=== PATIENT | female | born 1995 | race Caucasian/White ===

== ENCOUNTER 2018-08-20 13:36 | Emergency (ER) | payer OTHER ==
[~2018-08-20] VITALS: Ht 154.9 cm; Wt 84.1 kg
[2018-08-20 13:50] VITALS: Ht 154.9 cm; Wt 84.1 kg
[2018-08-20] MEDS ORDERED: CLARITIN 10 MG10 MG PO (13:51)
[2018-08-20] MEDS ORDERED: VOLTAREN75 MG PO (15:27)
[2018-08-20] MEDS ORDERED: ROBAXIN500 MG PO (15:27)
[2018-08-20 15:53] VITALS: BP 126/72
== END 2018-08-20 15:54 | disposition home or self-care (01) ==
LOC: D.ER 13:36
DX: S16.1XXA Strain of muscle, fascia and tendon at neck level, initial encounter (principal); V43.52XA Car driver injured in collision with other type car in traffic accident, initial encounter; Y93.89 Activity, other specified; Y92.410 Unspecified street and highway as the place of occurrence of the external cause

== ENCOUNTER 2019-01-14 20:19 | Inpatient (IN) | payer MEDICAID ==
[~2019-01-14] VITALS: Ht 154.9 cm; Wt 90.5 kg
[~2019-01-14 20:19] MED LIST: CLARITIN 10 MG10 MG PO; ROBAXIN500 MG PO; VOLTAREN75 MG PO
[2019-01-14] MEDS ORDERED: ZOVIRAX400 MG PO (20:35)
[2019-01-14] MEDS ORDERED: ZITHROMAX250 MG PO (20:35)
[2019-01-14] MEDS ORDERED: SINGULAIR10 MG PO (20:35)
[2019-01-14] MEDS ORDERED: ALBUTEROL SULF8.5 GM INH (20:35)
[2019-01-14] MEDS ORDERED: CLARITIN 10 MG10 MG PO (20:35)
--- NOTE | 2019-01-14 22:45 | NUR ---
RT AT BEDSIDE.
--- NOTE | 2019-01-14 22:57 | NUR ---
PT SECOND RECEIVED UPDRAFT BY RT. PT O2 SAT 89% ON RA. STEPHANI PALACIOS NOTIFIED.
[2019-01-14 23:02] LABS: HEMATOCRIT 39.6 % (36.0-48.0); HEMOGLOBIN 13.5 g/dL (12-16); LYMPHOCYTES 13.7 % (15-50); MCH 30.5 pg (26.0-34.0); MCHC 34.1 g/dL (31.0-37.0); MCV 89.4 fL (80.0-100.0); MEAN PLATELET VOLUME 12.2 fL (7.4-10.4); NEUTROPHILS 78.9 % (40-80); PLATELET COUNT 232 10x3/uL (130-400); RBC 4.43 10x6/uL (4.00-5.40); RDW 12.7 % (11.5-14.5)
--- NOTE | 2019-01-14 23:03 | NUR ---
FLU SWAB OBTAINED AND SENT TO LAB
[2019-01-14 23:07] LABS: CALC OSMOLALITY 282 mosm/kg (275-300); CALCIUM 8.8 mg/dL (8.5-10.1); CARBON DIOXIDE 29.8 mmol/L (21.0-32.0); CHLORIDE - SERUM 104 mmol/L (98-107); CREATININE - SERUM 0.7 mg/dL (0.6-1.3); GLUCOSE 108 mg/dL (74-106); POTASSIUM - SERUM 3.2 mmol/L (3.5-5.1); SODIUM 143 mmol/L (136-145); UREA NITROGEN 5 mg/dL (7-18); eGFR NON AFRICAN AMERICAN > 90 mL/min (90-120)
[2019-01-14 23:13] LABS: ALBUMIN 3.9 g/dL (3.4-5.0); ALKALINE PHOSPHATASE 98 U/L (46-116); ALT (SGPT) 21 U/L (10-68); BILIRUBIN - TOTAL 0.22 mg/dL (0.2-1.3); PROTEIN - SERUM 8.1 g/dL (6.4-8.2)
[2019-01-15] VITALS (7 sets, daily range): BP systolic 112–137; BP diastolic 71–81; Ht 154.9 cm; Wt 90.5 kg
--- NOTE | 2019-01-15 00:45 | NUR ---
RECEIVED VIA WHEELCHAIR FROM ER, A&O X4, MEDS AND HISTORY COMPLETE, [id number], PLACED ON 2L-NS, DENIES ANY NEEDS, BED IS LOW, SRX2, CALL LIGHT IN REACH, FAMILY AT BEDSIDE, WILL CONTINUE PLAN OF CARE
--- NOTE | 2019-01-15 07:00 | NUR ---
RECEIVED REPORT. ASSUMED CARE OF PATIENT. CALL LIGHT WITHIN REACH. PATIENT SITTING UP IN BED, RESP EVEN AND UNLABORED. QUESTIONED PATIENT ABOUT HER ASTHMA AND HOW WELL IT IS CONTROLLED. PATIENT STATES THAT SHE USES HER ALBUTEROL SEVERAL TIMES PER DAY, ALMOST EVERY DAY. SHE AWAKENS MULTIPLE TIMES AT TIME TO USE HER INHALER. PATIENT IS ON NO OTHER INHALERS SUCH LABA. INSPIRATORY AND EXPIRATORY WHEEZES THROUGHOUT THE ANTERIOR AND POSTERIOR LUNG ÁLVAREZ. DENIES NEEDS AT THIS TIME EXCEPT FOR SOMETHING OTHER THAN COUGH DROPS TO HELP HER COUGH. COUGH IS DRY.
--- NOTE | 2019-01-15 09:26 | NUR ---
WAITING ON PHARMACY TO BRING ANA VASQUEZ TO THE UNIT. PATIENT TOOK HER PRESCRIPTION OF ACYCLOVIR 800MG PO 5X DAILY AND SHE TOOK HER ZITHROMAX TAB AND HAS ONE TAB REMAINING FOR IN THE AM AND ABT WILL BE COMPLETE.
[2019-01-15 11:03] LABS: APPEARANCE CLEAR (CLEAR); BILIRUBIN NEGATIVE (NEGATIVE); COLOR YELLOW (YELLOW); GLUCOSE 250 mg/dL (NEGATIVE); KETONE NEGATIVE (NEGATIVE); NITRITE NEGATIVE (NEGATIVE); PROTEIN NEGATIVE (NEGATIVE); SPECIFIC GRAVITY 1.005 (1.005-1.020); UROBILINOGEN NORMAL (NORMAL)
[2019-01-15 11:04] LABS: BACTERIA MANY /hpf (NEGATIVE); EPITHELIAL CELLS 0-5 /hpf (0-5); MUCUS >1+ /lpf (NONE SEEN)
--- NOTE | 2019-01-15 11:50 | NUR ---
DR. ORTIZ HERE FOR ROUNDS. NO DISTRESS. ASTHMA DISCUSSED WITH PATIENT. CALL LIGHT WITHIN REACH.
--- NOTE | 2019-01-15 14:17 | NUR ---
RESTING IN BED. NO DISTRESS. CALL LIGHT WITHIN REACH.
--- NOTE | 2019-01-15 15:22 | NUR ---
PATIENT UP ADLIB, REFUSES SCDs.
--- NOTE | 2019-01-15 17:06 | NUR ---
MEDICATED FOR COUGH AT THIS TIME. PATIENT COMPLAINS THE MUCOUS IS THICK AND SHE CAN'T GET IT OUT AND THE COUGH IN NONSTOP. HOPEFULLY THIS WILL HELP.
[2019-01-16 04:00] VITALS: BP 115/68
[2019-01-16 06:13] LABS: BASOPHILS 0 % (0-2); EOSINOPHILS 0 % (0-7); HEMATOCRIT 39.8 % (36.0-48.0); HEMOGLOBIN 13.1 g/dL (12-16); IMMATURE GRANULOCYTES 0.4 % (0-5); LYMPHOCYTES 5.6 % (15-50); MCH 30.3 pg (26.0-34.0); MCHC 32.9 g/dL (31.0-37.0); MEAN PLATELET VOLUME 11.8 fL (7.4-10.4); MONOCYTES 3.4 % (2-11); NEUTROPHILS 90.6 % (40-80); PLATELET COUNT 270 10x3/uL (130-400); RBC 4.33 10x6/uL (4.00-5.40); RDW 13.2 % (11.5-14.5)
[2019-01-16 06:24] LABS: MCV 91.9 fL (80.0-100.0); WBC 13.4 10x3/uL (4.8-10.8)
[2019-01-16 06:26] LABS: CALCIUM 9.2 mg/dL (8.5-10.1); CARBON DIOXIDE 27.7 mmol/L (21.0-32.0); CHLORIDE - SERUM 106 mmol/L (98-107); CREATININE - SERUM 0.6 mg/dL (0.6-1.3); GLUCOSE 149 mg/dL (74-106); SODIUM 142 mmol/L (136-145); eGFR NON AFRICAN AMERICAN > 90 mL/min (90-120)
[2019-01-16 06:27] LABS: CALC OSMOLALITY 284 mosm/kg (275-300); UREA NITROGEN 9 mg/dL (7-18)
--- NOTE | 2019-01-16 07:20 | NUR ---
PT RESTING IN BED, MICHAEL NEEDS. WCTM.
[2019-01-16 09:00] VITALS: BP 131/70
[2019-01-16 11:46] VITALS: BP 131/83
[2019-01-16 16:16] VITALS: BP 122/78
--- NOTE | 2019-01-16 19:45 | NUR ---
REPORT RECIEVED AND ROUNDING COMPLETE. PATIENT SITTING UP IN BED IN HIGH FOWLERS POSITION. PATIENT DISAPOINTED THAT SHE COULDNT GO HOME TODAY BUT UNDERSTANDS. PATIENT HAS A RIGHT AC PIV THAT IS SALINR LOCKED, NO S/SX OF INFILTRATION OR INFECTION AT THIS TIME. PATIENT COMPLAIND OF DRY NOSE FROM O2 WHICH SHE IS RECIEVING VIA NASAL CANNULA. REPORT THIS TO RT. PATIENT STATES SHE HAS NO OTHER NEEDS AT THIS TIME. CALL LIGHT WITHIN REACH AND BED IN LOWEST LOCKED POSITION. PATIENT SHOWING NO S/SX OF DISTRESS AT THIS TIME.
[2019-01-16 20:00] VITALS: BP 133/84
[2019-01-17 00:30] VITALS: BP 116/76
--- NOTE | 2019-01-17 01:40 | NUR ---
I have reviewed this patient and I concur with the Shift Assessment completed by the Licensed Practical Nurse today this shift.
[2019-01-17 04:00] VITALS: BP 115/74
[2019-01-17 05:09] LABS: BASOPHILS 0 % (0-2); EOSINOPHILS 0 % (0-7); HEMATOCRIT 39.7 % (36.0-48.0); HEMOGLOBIN 12.8 g/dL (12-16); IMMATURE GRANULOCYTES 0.9 % (0-5); LYMPHOCYTES 7.6 % (15-50); MCH 30.4 pg (26.0-34.0); MCHC 32.2 g/dL (31.0-37.0); MEAN PLATELET VOLUME 11.9 fL (7.4-10.4); MONOCYTES 2.3 % (2-11); NEUTROPHILS 89.2 % (40-80); PLATELET COUNT 285 10x3/uL (130-400); RBC 4.21 10x6/uL (4.00-5.40); RDW 13.3 % (11.5-14.5); WBC 12.5 10x3/uL (4.8-10.8)
[2019-01-17 05:22] LABS: CALCIUM 8.6 mg/dL (8.5-10.1); CARBON DIOXIDE 27.7 mmol/L (21.0-32.0); CHLORIDE - SERUM 106 mmol/L (98-107); GLUCOSE 131 mg/dL (74-106); POTASSIUM - SERUM 4.4 mmol/L (3.5-5.1); SODIUM 143 mmol/L (136-145)
[2019-01-17 05:23] LABS: CALC OSMOLALITY 287 mosm/kg (275-300); CREATININE - SERUM 0.8 mg/dL (0.6-1.3); UREA NITROGEN 14 mg/dL (7-18); eGFR NON AFRICAN AMERICAN > 90 mL/min (90-120)
[2019-01-17 05:51] LABS: MCV 94.3 fL (80.0-100.0)
--- NOTE | 2019-01-17 07:00 | NUR ---
RECEIVED REPORT. ASSUMED CARE OF PATIENT. CALL LIGHT WITHIN REACH. PATIENT SITTING UP ON BED, ALERT ORIENTED RECIEVING A NEBULIZER TREATMENT. PATIENT STATES SHE FEELS MUCH BETTER AND HOPES THAT SHE WILL GET TO GO HOME TODAY. DENIES NEEDS. NO DISTRESS.
--- NOTE | 2019-01-17 08:01 | NUR ---
CALLED PHARMACY AND SPOKE TO ROB TO NOTIFY THAT WE HAVE NO ACYCLOVIR TO ADMINISTER TO THE PATIENT, BOTH PYSIX MACHINES ARE EMPTY. MEDICATION SHOULD BE TO THE FLOOR SOON.
[2019-01-17 08:51] VITALS: BP 125/71
[2019-01-17 12:02] VITALS: BP 124/81
--- NOTE | 2019-01-17 12:33 | NUR ---
CALLED AND HE IS COMING TO SEE PATIENT IN A FEW MINUTES AND WILL PROBABLY LET HER GO HOME.
--- NOTE | 2019-01-17 13:50 | MORECARE ---
CASE MANAGEMENT DISCHARGE SUMMARY PATIENT: KAZ WILBURN UNIT: [id number] ADM DATE: 01/16/19 AGE: 23 : 95 SEX: F ROOM/BED: D.6537 AUTHOR: IAN,DOC PHYSICIAN: REFERRING PHYSICIAN: JUANY MONROE MD DATE OF SERVICE: 01/17/19 Discharge Plan Patient Name: KAZ WILBURN Facility: [facility]:[place] : 1995 Planned Disposition: Home Anticipated Discharge Date: 01/17/19 Discharge Date: Expected LOS: 1 Initial Reviewer: [email or web address] Initial Review Date: 01/15/2019 Generated: 01/17/19 2:50 pm Comments DCP- Discharge Planning Updated by [email or web address]: Jeri Landaverde on 01/17/19 12:[address] DC PLAN: Return home with . ANTICIPATED DC NEEDS: Denied dc needs. CM met with patient to complete initial dc planning assessment. CM educated patient on the CM role and verbal consent given by patient to complete assessment. CM verified patient's address, phone number, and emergency contact phone numbers. Patient lives at home with her . At discharge patient plans to return home and feels this is a safe discharge. CM discussed availability of home health, rehab services, and medical equipment. Patient denied known discharge needs at this time. She stated she has a nebulizer at home and only needs her nebulizer medication called in. Journalism Teacher notified and she will call the medication in to the pharmacy. Patient reports she will transport herself home at time of discharge. CM will continue to follow and will assist as needed with dc plans/needs. Jrei Landaverde RN, [facility] DCPIA - Discharge Planning Initial Assessment Updated by [email or web address]: Jeri Landaverde on 01/17/19 1:45 pm * Is the patient Alert and Oriented? Yes * How many steps to enter\exit or inside your home? none * PCP Dr. Radha Sims * Pharmacy [facility] * Preadmission Environment Home with Family * ADLs Independent * Equipment Nebulizer * List name and contact numbers for known caregivers / representatives who currently or will assist patient after discharge: Buzz Wilburn - spouse - [phone] * Verbal permission to speak to the caregivers and representatives has been obtained from the patient. Yes * Community resources currently utilized None * Additional services required to return to the preadmission environment? No * Can the patient safely return to the preadmission environment? Yes * Has this patient been hospitalized within the prior 30 days at any hospital? No Patient Name: KAZ WILBURN Page [phone] at 1350 All edits/amendments must be made on the electronic document DICTATION DATE: 01/17/19 1350 HEAD OF MAINTENANCE: PILLO 01/17/19 1350 RPT#: [id number] DC DATE: STATUS: ADM IN [facility] [address] [place] [address] END OF REPORT
--- NOTE | 2019-01-17 14:21 | NUR ---
20 GAUGE IV REMOVED FROM RIGHT AC. CATHETER TIP INTACT. NO BLEEDING FROM SITE. 2X2 GAUZE APPLIED AND SECURED WITH BANDAID. PATIENT TOLERATED IV REMOVAL WELL. PATIENT IS BEING DISCHARGED TO HOME.
[2019-01-17] MEDS ORDERED: SYMBICORT 16010.2 GM INH (14:26)
[2019-01-17] MEDS ORDERED: FLUTICASONE PRO16 GM NASAL (14:27)
[2019-01-17] MEDS ORDERED: MUCINEX DM ER1 EAC1 PO (14:27)
[2019-01-17] MEDS ORDERED: DOXYCYCLINE HY100 M2 PO (14:28)
[2019-01-17] MEDS ORDERED: FEXOFENADINE HC60 MG PO (14:28)
[2019-01-17] MEDS ORDERED: PREDNISONE10 MG (14:29)
--- NOTE | 2019-01-17 14:43 | NUR ---
PATIENT HAS NOT HAD A FLU SHOT THIS YEAR. DOES NOT WANT ONE AT THIS TIME.
--- NOTE | 2019-01-17 15:01 | NUR ---
DISCHARGE INSTRUCTIONS PROVIDED TO PATIENT. PATIENT VERBALIZED UNDERSTANDING OF ALL INSTRUCTIONS AND THE NEED TO GO ENERGY PROFESSIONAL THE MULTIPLE PRESCRIPTIONS CALLED OVER FOR HER. PATIENT LEFT AMBULATORY AT THIS TIME. PATIENT LEFT UNIT WITH ALL PERSONAL BELONGINGS. PATIENT DISCHARGED TO HOME. PATIENT IN NO DISTRESS UPON LEAVING UNIT.
--- NOTE | 2019-01-18 08:02 | MORECARE ---
CASE MANAGEMENT DISCHARGE SUMMARY PATIENT: KAZ WILBURN UNIT: [id number] ADM DATE: 01/16/19 AGE: 23 : 95 SEX: F ROOM/BED: D.3583 AUTHOR: IAN,DOC PHYSICIAN: REFERRING PHYSICIAN: JUANY MONROE MD DATE OF SERVICE: 01/18/19 Discharge Plan Patient Name: KAZ WILBURN Facility: [facility]:[place] : 1995 Planned Disposition: Home Anticipated Discharge Date: 01/17/19 Discharge Date: 01/17/2019 Expected LOS: 1 Initial Reviewer: [email or web address] Initial Review Date: 01/15/2019 Generated: 01/18/19 9:01 am Comments DCP- Discharge Planning Updated by [email or web address]: Jeri Landaverde on 01/17/19 12:[address] DC PLAN: Return home with . ANTICIPATED DC NEEDS: Denied dc needs. CM met with patient to complete initial dc planning assessment. CM educated patient on the CM role and verbal consent given by patient to complete assessment. CM verified patient's address, phone number, and emergency contact phone numbers. Patient lives at home with her . At discharge patient plans to return home and feels this is a safe discharge. CM discussed availability of home health, rehab services, and medical equipment. Patient denied known discharge needs at this time. She stated she has a nebulizer at home and only needs her nebulizer medication called in. Lecturer In Computer Science notified and she will call the medication in to the pharmacy. Patient reports she will transport herself home at time of discharge. CM will continue to follow and will assist as needed with dc plans/needs. Jeri Landaverde RN, [facility] DCPIA - Discharge Planning Initial Assessment Updated by [id number]: Jeri Landaverde on 01/17/19 1:45 pm * Is the patient Alert and Oriented? Yes * How many steps to enter\exit or inside your home? none * PCP Dr. Radha Sims * Pharmacy [facility] * Preadmission Environment Home with Family * ADLs Independent * Equipment Nebulizer * List name and contact numbers for known caregivers / representatives who currently or will assist patient after discharge: Buzz Wilburn - spouse - [phone] * Verbal permission to speak to the caregivers and representatives has been obtained from the patient. Yes * Community resources currently utilized None * Additional services required to return to the preadmission environment? No * Can the patient safely return to the preadmission environment? Yes * Has this patient been hospitalized within the prior 30 days at any hospital? No Last DP export: 01/17/19 12:50 Patient Name: KAZ WILBURN Page [phone] at 0802 All edits/amendments must be made on the electronic document DICTATION DATE: 01/18/19800 PAINTING MACHINE OPERATOR: PILLO 01/18/19800 RPT#: [id number] DC DATE:01/17/19 STATUS: DIS IN [facility] [address] [place] [address] END OF REPORT
--- NOTE | 2019-01-30 13:55 | CN ---
PATIENT NAME:KAZ WILBURN MEDICAL RECORD: [id number] : [birth year] LOCATION:D.M2 D.2113 ADMIT DATE: 01/16/19 ACCOUNT: [id number] CONSULTING PHYSICIAN: BREANN ORTIZ MD REFERRING PHYSICIAN: JUANY YA MD DATE OF CONSULTATION: 01/15/2019 CONSULT REQUESTING PHYSICIAN: Juany Ya MD REASON FOR CONSULTATION: Acute asthma exacerbation. HISTORY OF PRESENT ILLNESS: Ms. Wilburn is a 23-year-old female who has a history of asthma. She is doing fairly. She is using her albuterol inhaler on a daily basis. A few days ago she had upper respiratory tract infection. She was given some Z-SHAYNE, but the patient was not getting any better and the patient came into the ER with worsening shortness of breath, wheezing and coughing. Now denies any fever and chills. There are no night sweats. REVIEW OF SYSTEMS: As in history of present illness. PAST MEDICAL HISTORY: 1. Asthma. 2. Seasonal allergy. 3. Allergic rhinitis. PAST SURGICAL HISTORY: Nonsignificant. ALLERGIES: No known drug allergy. MEDICATIONS: [place] is reviewed. PERSONAL AND SOCIAL HISTORY: The patient is a nonsmoker, but she is abusing marijuana. She is a nondrinker. She is drinking off and on. FAMILY HISTORY: Significant for cardiovascular diseases. PHYSICAL EXAMINATION: GENERAL: Now, the patient is lying comfortably in bed. She is not in acute distress. VITAL SIGNS: The blood pressure is 133/74, pulse is 113, respiration is 14, temperature 98.4, and SpO2 is 97% on 2 liters nasal cannula. HEENT: Conjunctivae are pink. Sclerae are not icteric. NECK: Supple, no JVD. CHEST: The chest excursion is minimal on both sides. Wheeze on forceful expiration. HEART: Rhythm regular, normal sound, no murmur. ABDOMEN: Soft, bowel sounds present. No hepatosplenomegaly. RECTAL: Deferred. EXTREMITIES: No cyanosis, no clubbing, no pedal edema. CENTRAL NERVOUS SYSTEM: The patient is awake and alert. There is no obvious cranial nerve abnormality. The gait was not tested. LABORATORY DATA: CBC: WBC is 10,000, hemoglobin is 13.5, hematocrit is 39.6, the platelet count 232. CONSULT REPORT [id number] KAZ WILBURN Chemistry: Sodium 143, potassium 3.2, BUN is 5, creatinine 0.7. D-dimer was less 0.27. Serology for influenza A and B is negative. IMPRESSION: 1. Acute exacerbation of asthma. 2. Tracheobronchitis. 3. Allergic rhinitis. 4. Acute cough. 5. Dyspnea. 6. Hypokalemia. RECOMMENDATIONS: 1. Albuterol/ipratropium nebulizer. 2. Brovana/budesonide nebulizer. 3. Singulair. 4. Decrease the dose of methylprednisolone. 5. Check IgE level. 6. Follow up CBC. 7. Potassium replacement. Dr. Ya thank you for involving me in the care of Ms. Wilburn. TRANSINT:[id number] Voice Confirmation ID: [id number] DOCUMENT ID: [id number] BREANN ORTIZ MD at 1355 CC: [id number] DICTATION DATE: 01/15/19 1206 SCHOOL CUSTODIAN: 01/15/19 2311 DIS IN 01/17/19 [facility] [address] [place] [address]
== END 2019-01-17 15:02 | disposition home or self-care (01) | DRG 202 ==
LOC: D.ER 20:19 → OBSVTIME 01-15 00:09 → D.M2 01-15 00:09
PROVIDERS: Family Medicine; ADMIT Internal Medicine Nephrology; ATTEND Internal Medicine Nephrology
DX: J45.901 Unspecified asthma with (acute) exacerbation (principal); N17.9 Acute kidney failure, unspecified; E87.6 Hypokalemia; J30.9 Allergic rhinitis, unspecified

== ENCOUNTER → 2019-04-04 08:15 | Outpatient (CLI) | payer MEDICAID ==
[2019-01-15 08:21] VITALS: BMI 36.7
[~2019-04-04 08:15] MED LIST changes: +ALBUTEROL SULF8.5 GM INH; +DOXYCYCLINE HY100 M2 PO; +FEXOFENADINE HC60 MG PO; +FLUTICASONE PRO16 GM NASAL; +MUCINEX DM ER1 EAC1 PO; +PREDNISONE10 MG; +SINGULAIR10 MG PO; +SYMBICORT 16010.2 GM INH; +ZITHROMAX250 MG PO; +ZOVIRAX400 MG PO
== END | disposition home or self-care (01) ==
LOC: D.RT 01-19 08:00
PROVIDERS: ATTEND Internal Medicine Pulmonary Disease
DX: J45.909 Unspecified asthma, uncomplicated (principal)

== ENCOUNTER 2019-09-23 20:56 | Emergency (ER) | payer MEDICAID ==
[~2019-09-23] VITALS: Ht 154.9 cm; Wt 79.5 kg
[2019-09-23 21:04] VITALS: Ht 154.9 cm; Wt 79.5 kg
[2019-09-23 21:33] LABS: BASOPHILS 0.1 % (0-2); EOSINOPHILS 0.7 % (0-7); HEMATOCRIT 40.1 % (36.0-48.0); HEMOGLOBIN 14.1 g/dL (12-16); IMMATURE GRANULOCYTES 0.1 % (0-5); LYMPHOCYTES 19.8 % (15-50); MCH 30.1 pg (26.0-34.0); MCHC 35.2 g/dL (31.0-37.0); MCV 85.7 fL (80.0-100.0); MONOCYTES 15.7 % (2-11); NEUTROPHILS 63.6 % (40-80); PLATELET COUNT 236 10x3/uL (130-400); RBC 4.68 10x6/uL (4.00-5.40); RDW 13.2 % (11.5-14.5); WBC 6.9 10x3/uL (4.8-10.8)
[2019-09-23 21:34] LABS: BILIRUBIN 2+ (NEGATIVE); GLUCOSE NEGATIVE (NEGATIVE); KETONE LARGE mg/dL (NEGATIVE); NITRITE NEGATIVE (NEGATIVE); UROBILINOGEN 8 mg/dL (NORMAL)
[2019-09-23 21:37] LABS: UDS - AMPHET NEGATIVE QUAL (NEGATIVE); UDS - BARB NEGATIVE QUAL (NEGATIVE); UDS - BENZO NEGATIVE QUAL (NEGATIVE); UDS - COCAINE NEGATIVE QUAL (NEGATIVE); UDS - OPIATE NEGATIVE QUAL (NEGATIVE); UDS - PCP NEGATIVE QUAL (NEGATIVE); UDS - THC POSITIVE QUAL (NEGATIVE)
[2019-09-23 21:42] LABS: BACTERIA MODERATE /hpf (NEGATIVE); EPITHELIAL CELLS 0-5 /hpf (0-5); RED CELLS - URINE NONE SEEN /hpf (0-5)
[2019-09-23 21:44] LABS: WHITE CELLS - URINE 0-5 /hpf (NEGATIVE)
[2019-09-23 22:24] LABS: ALBUMIN 3.2 g/dL (3.4-5.0); ALKALINE PHOSPHATASE 76 U/L (30-120); ALT (SGPT) 636 U/L (10-68); BILIRUBIN - TOTAL 2.79 mg/dL (0.2-1.3); CALC OSMOLALITY 269 mosm/kg (275-300); CALCIUM 9.1 mg/dL (8.5-10.1); CARBON DIOXIDE 25.5 mmol/L (21.0-32.0); CHLORIDE - SERUM 96 mmol/L (98-107); CREATININE - SERUM 0.6 mg/dL (0.6-1.3); GLUCOSE 118 mg/dL (74-106); HCG - QUANTITATIVE (MATERNAL) 65100 mIU/mL; LIPASE 132 U/L (73-393); MAGNESIUM - SERUM 1.5 mg/dL (1.8-2.4); PROTEIN - SERUM 6.8 g/dL (6.4-8.2); SODIUM 136 mmol/L (136-145); THYROID STIMULATING HORMONE 0.49 uIU/mL (0.36-3.74); UREA NITROGEN 5 mg/dL (7-18); eGFR NON AFRICAN AMERICAN > 90 mL/min (90-120)
[2019-09-23 22:25] LABS: POTASSIUM - SERUM 2.5 mmol/L (3.5-5.1)
[2019-09-24] MEDS ORDERED: ZOFRAN ODT4 MG/UDTAB PO (01:07)
[2019-09-24] MEDS ORDERED: PHENERGAN25 MG RC (01:07)
[2019-09-24 01:53] VITALS: BP 115/77
== END 2019-09-24 01:53 | disposition home or self-care (01) ==
LOC: D.ER 20:56
PROVIDERS: Family Medicine
DX: O99.611 Diseases of the digestive system complicating pregnancy, first trimester (principal); Z3A.12 12 weeks gestation of pregnancy; R11.2 Nausea with vomiting, unspecified